=== PATIENT | male | born 1960 | race Caucasian/White ===

== ENCOUNTER 2021-05-22 09:19 | Emergency (ER) | payer SELFPAY ==
[2021-05-22 09:24] VITALS: BMI 23.1
[2021-05-22] MEDS ORDERED: CASIRIVIMAB/IMDEVIMAB 10 ML in SODIUM CHLORIDE 100 ML IVPB ONE (11:42)
[2021-05-22 12:56] VITALS: TEMP 98.9
[2021-05-22 13:32] VITALS: BP 137/86; PULSE 79
== END 2021-05-22 14:30 | disposition home or self-care (01) ==
LOC: JCOVINFU 09:19
PROC: 3E033GC Introduction of Other Therapeutic Substance into Peripheral Vein, Percutaneous Approach (ICD-10-PCS; principal; 2021-05-22)
DX: U07.1 COVID-19 (principal)
CPT/HCPCS: 99284-25; Q0240